=== PATIENT | female | born 1975 | race Caucasian/White ===

== ENCOUNTER 2016-05-11 12:34 | Emergency (ER) | payer OTHER ==
--- NOTE | 2016-05-11 15:39 | UC ---
Throat Pain/Nasal Zak HPI - HPI Summary HPI Summary: sore throat fever, body aches - History of Current Complaint Chief Complaint: UCGeneralIllness Stated Complaint: ST,ACHY, Time Seen by Provider: 05/11/16 15:31 Hx Obtained From: Patient Hx Last Menstrual Period: Mirena, not in years ?: No Onset/Duration: Sudden Onset, Lasting Days - 2, Still Present Severity: Moderate Pain Intensity: 6 Pain Scale Used: 0-10 Numeric Cough: None Associated Signs & Symptoms: Positive: Fever - Allergies/Home Medications Allergies/Adverse Reactions: Allergies Allergy/AdvReac Type Severity Reaction Status Date / Time Amoxicillin Allergy Hives Verified 05/11/16 15:32 Erythromycin Allergy Vomiting Verified 05/11/16 15:32 Seasonal Allergy Congestion Uncoded 05/11/16 15:31 Sulfa Drugs Allergy Hives Uncoded 05/11/16 15:32 Home Medications: Home Medications Albuterol HFA INHALER* [Ventolin HFA Inhaler*] 2 puff INH Q4HR PRN 05/11/16 [ History Confirmed 05/11/16] Levonorgestrel (IUD) (NF) [Mirena (NF)] 05/11/16 [History] Lisinopril TAB* [Prinivil TAB 10 MG*] 1 tab PO DAILY 05/11/16 [History Confirmed 05/11/16] Melatonin 1 tab PO BEDTIME 05/11/16 [History Confirmed 05/11/16] PMH/Surg Hx/FS Hx/Imm Hx Previously Healthy: No Endocrine History Of: Reports: Thyroid Disease - had swollen thryroid while Denies: Diabetes Cardiovascular History Of: Reports: Hypertension Denies: Cardiac Disorders Respiratory History Of: Reports: Asthma - resolved childhood asthma per pt Denies: COPD GI/ History Of: Denies: Ulcer - Surgical History Surgical History: None - Family History Family History: no cardiovascular issues in family lineage - Social History Occupation: Employed Full-time Lives: With Family Alcohol Use: Daily Alcohol Amount: couple of beers or couple glasses of wine Substance Use Type: None Smoking Status (MU): Heavy Every Day Tobacco Smoker Type: Cigarettes Amount Used/How Often: 1/2-1 ppd Length of Time of Smoking/Using Tobacco: 23 years Have You Smoked in the Last Year: Yes Household Exposure Type: Cigarettes Cessation Counseling: Counseled 3+Min - 10 Min - Immunization History Most Recent Influenza Vaccination: 01/30 Review of Systems Constitutional: Chills, Fatigue Skin: Negative Eyes: Negative ENT: Sore Throat Respiratory: Negative Cardiovascular: Negative Gastrointestinal: Negative Genitourinary: Negative Motor: Negative Neurovascular: Negative Musculoskeletal: Negative Neurological: Negative Psychological: Negative All Other Systems Reviewed And Are Negative: Yes Physical Exam Triage Information Reviewed: Yes Appearance: Well-Appearing, No Pain Distress, Well-Nourished Vital Signs: Initial Vital Signs Temp 98.5 F 05/11/16 15:25 Eye Exam: Normal Eyes: Positive: Conjunctiva Clear ENT Exam: Other ENT: Positive: Hearing grossly normal, Pharyngeal erythema, Nasal congestion, Nasal drainage, TMs normal. Negative: Tonsillar swelling, Tonsillar exudate, Trismus, Muffled/hoarse voice Dental Exam: Normal Neck exam: Normal Neck: Positive: Supple, Nontender, No Lymphadenopathy Respiratory Exam: Normal Respiratory: Positive: Chest non-tender, Lungs clear, Normal breath sounds, No respiratory distress, No accessory muscle use Cardiovascular Exam: Normal Cardiovascular: Positive: RRR, No Murmur, Pulses Normal, Brisk Capillary Refill Musculoskeletal Exam: Normal Musculoskeletal: Positive: Strength Intact, ROM Intact, No Edema Neurological Exam: Normal Neurological: Positive: Alert, Muscle Tone Normal Psychological Exam: Normal Skin Exam: Normal Diagnostics - Laboratory Diagnostic Studies Completed/Ordered: RST (+) Throat Pain/Nasal Course/Dx - Course Assessment/Plan: Zithromax, increase fluids, rest, follow with pcp, nicotine smoking cesation information - Differential Dx/Diagnosis Differential Diagnosis/HQI/PQRI: Influenza, Otitis Media, Peritonsillar Abscess , Pharyngitis, Sinusitis, URI Provider Diagnoses: Strep pharyngitis Discharge - Discharge Plan Condition: Stable Disposition: HOME Prescriptions: Azithromycin TAB* [Zithromax TAB (Z-KHUSHI) 250 mg #6 tabs] 2 tab PO .TODAY, THEN 1 DAILY #1 khushi Patient Education Materials: How to Stop Smoking (ED), Strep Throat (ED), Cigarette Smoking and Your Health (GEN) Forms: *Work Release Referrals: [facility] [Outside] - If Needed
[2016-05-11 15:41] VITALS: BP 142/95
== END 2016-05-11 16:10 | disposition home or self-care (01) ==
LOC: UCEAST 12:34
DX: J02.0 Streptococcal pharyngitis (principal); I10 Essential (primary) hypertension; F17.210 Nicotine dependence, cigarettes, uncomplicated; Z88.0 Allergy status to penicillin; Z88.2 Allergy status to sulfonamides
CPT/HCPCS: 87502; 87651; 99212; G0463

== ENCOUNTER 2016-06-14 00:39 | Inpatient (IN) | payer OTHER ==
[2016-06-14] MEDS ORDERED: Ondansetron INJ* 2 MG/ML VIAL IV ONE ×2 (00:43→01:06)
[2016-06-14] MEDS ORDERED: NS 0.9% 1000 ML* 1,000 ML IV ONE ×2 (00:43→00:54)
[2016-06-14] MEDS ORDERED: Aspirin TAB* 325 MG PO ONE (00:55)
[2016-06-14] MEDS ORDERED: Heparin for STEMI(*) 5,000 UNITS/ML 1 ML VIAL IV ONE ×2 (01:00→01:01)
[2016-06-14] MEDS ORDERED: Metoprolol Tartrate TAB* 25 MG PO ONE (01:00)
[2016-06-14] MEDS ORDERED: Aspirin Low Dose CHEW TAB* 81 MG ONE (01:01)
[2016-06-14] MEDS ORDERED: Morphine INJ* 4 MG/ML 1 ML SYRINGE IV ONE (01:06)
[2016-06-14 01:16] LABS: Hematocrit 42 % (35-47); Hemoglobin 14.3 g/dl (12.0-16.0); Mean Corpuscular HGB Conc 34 g/dl (31-36); Mean Corpuscular Hemoglobin 32 pg (27-31); Mean Corpuscular Volume 93 fL (80-97); Mean Platelet Volume 8 um3 (7.4-10.4); Red Blood Count 4.51 10^6/ul (4.0-5.4); Red Cell Distribution Width 13 % (10.5-15); White Blood Count 15.9 10^3/ul (3.5-10.8)
[2016-06-14] MEDS ORDERED: fentaNYL* 50 MCG/ML 2 ML VIAL (100 MCG VIAL) ONE ×2 (01:20→02:53)
[2016-06-14] MEDS ORDERED: Iohexol 350 (CONTRAST) 200 ML MDV IV ONE ×2 (01:20→02:28)
[2016-06-14] MEDS ORDERED: Heparin(*) 1000 UNIT/ML 10 ML VIAL CATH LAB IV ONE (01:20)
[2016-06-14] MEDS ORDERED: Midazolam* 1 MG/ML 5 ML VIAL (5 MG) ONE (01:20)
[2016-06-14] MEDS ORDERED: VERAPAMIL 2.5 MG/ML 4 ML VIAL ONE (01:20)
[2016-06-14] MEDS ORDERED: nitroGLYCERIN DRIP* 250 ML ONE (01:21)
[2016-06-14] MEDS ORDERED: Heparin 2 UNITS/ML IVPREMIX* 2,000 ML IV ONE (01:21)
[2016-06-14] MEDS ORDERED: Lidocaine 1% INJ* 10 MG/ML 30 ML SDV ONE (01:21)
[2016-06-14 01:30] LABS: Urine Bacteria 1+ (Absent); Urine Bilirubin Negative (Negative); Urine Glucose 1+(50 mg/dL) (Negative); Urine Nitrite Negative (Negative)
[2016-06-14 01:31] LABS: Albumin 4.4 g/dL (3.2-5.2); BUN/Creatinine Ratio 12.5 (8-20); Calcium 8.9 mg/dL (8.6-10.3); EGFR African American 91.5 (>60); EGFR Non-African American 71.2 (>60); Globulin 3.1 g/dL (2-4); Potassium 2.9 mmol/L (3.5-5.0); Total Bilirubin 0.4 mg/dL (0.2-1.0); Total Protein 7.5 g/dL (6.4-8.9)
[2016-06-14 01:35] LABS: Troponin I 0.03 ng/mL (<0.04)
[2016-06-14] MEDS ORDERED: KCL 10 MEQ/50 ML IVPREMIX* 10 MEQ/50 ML BAG ONE ×2 (01:46→05:58)
[2016-06-14] MEDS ORDERED: Nitroglycerin TAB 0.4 MG* 0.4 MG TAB SL PRN (03:28)
[2016-06-14] MEDS ORDERED: oxyCODONE/Acetamin 5/325 MG* TAB PO PRN (03:30)
[2016-06-14] MEDS ORDERED: Ondansetron INJ* 2 MG/ML VIAL IV PRN (03:30)
[2016-06-14] MEDS ORDERED: Clopidogrel TAB* 300 MG PO ONE (03:30)
[2016-06-14] MEDS ORDERED: NS 0.9% 1000 ML* 1,000 ML IV SCH (03:30)
[2016-06-14 04:30] LABS: Cholesterol 174 mg/dL; HDL Cholesterol 35.4 mg/dL; LDL Cholesterol 103 mg/dL; Triglycerides 179 mg/dL
[2016-06-14 04:42] LABS: Troponin I 0.55 ng/mL (<0.04)
[2016-06-14] MEDS: Metoprolol Tartrate TAB* 25 MG PO SCH ×3 (05:32→20:45)
[2016-06-14] MEDS ORDERED: KCL premix 10MEQ/50 ML x 1 TIME IV ONE (06:15)
--- NOTE | 2016-06-14 07:40 | RAD ---
INDICATION: STEMI. COMPARISON: There are no prior studies available for comparison. TECHNIQUE: A portable view of the chest was obtained. FINDINGS: Cardiac and mediastinal contours appear to be within normal limits. The lungs are clear. No pleural effusion is seen. IMPRESSION: NO EVIDENCE FOR ACUTE DISEASE.
[2016-06-14] MEDS ORDERED: PROCHLORPERAZINE INJ 5 MG/ML 2 ML VIAL ONE (08:22)
[2016-06-14 10:16] LABS: Potassium 4.6 mmol/L (3.5-5.0)
[2016-06-14 10:23] LABS: Troponin I 6.51 ng/mL (<0.04)
[2016-06-14] MEDS: Aspirin Low Dose CHEW TAB* 81 MG PO SCH (11:53)
[2016-06-14] MEDS: PROCHLORPERAZINE INJ 5 MG/ML 2 ML VIAL IV PRN ×2 (13:41→20:35)
[2016-06-14] MEDS: Clopidogrel TAB* 75 MG PO SCH (15:12)
[2016-06-14] MEDS: Atorvastatin* 80 MG TAB PO SCH (15:12)
--- NOTE | 2016-06-14 23:08 | HP ---
CC: Doni Phelps MD HISTORY AND PHYSICAL: DATE OF ADMISSION: 06/14/16 PRIMARY CARE PHYSICIAN: None. HISTORY OF PRESENT ILLNESS: A 41-year-old woman presenting to the ER with inferior wall ST elevatio n infarct. She has no previous cardiac history, for the past number of weeks, has been exercising strenuously i n the gym trying to lose weight. Yesterday, she presented to the ER with some GI symptoms, was init ially thought to have a viral syndrome. An EKG was obtained when she causally mentioned that she had been experiencing chest discomfort. The EKG at 0050 hours showed an acute inferior ST elevation in farct with ST elevation in 2, 3, and AVF with reciprocal ST-T wave changes at 1, AVL. She was spenser cardiac with borderline ectopic atrial rhythm. STEMI was called, she was brought to the labelling machine operator. She has not had any previous cardiac symptoms. She does have a history of hypertension and hyperlip idemia, but did not pursue medical followup because she had no insurance coverage, and did not have the financial means to pay for medications. She recently has acquired insurance. She tells me she is prepared to take whatever medications are required, even if she has stenting done. PAST MEDICAL HISTORY: Obesity, hyperlipidemia, and hypertension. FAMILY HISTORY: Positive for heart disease in her family, but not in first-degree relatives. ALLERGIES: AMOXICILLIN, ERYTHROMYCIN, and SULFA DRUGS. SOCIAL HISTORY: She is a smoker. PHYSICAL EXAMINATION When seen in the ER, she was complaining of chest and arm discomfort. Her initial BP 118/69 and hea rt rate in the 50s, sinus bradycardia. Her lungs were clear to percussion and auscultation. JVP wa s normal as were the carotids. She had no bruits. HEENT: Unremarkable without xanthelasma, sclera l injection, or jaundice. EOMs normal. Cranial nerves grossly intact. Cardiac Exam: Chest wall no ntender, normal heart sounds, no gallop, no murmur, and no rub. RV not palpable. Abdomen: Soft, no ntender. Normal bowel sounds. Liver and aorta not palpable. No bruit. Femoral pulses 2+. Extremi ties: Radial pulses were 2+, pedal pulses 2+. She had no cyanosis, clubbing, or edema. Skin: War m and perfused. Psych: She is oriented and appropriate. DIAGNOSTIC STUDIES/LAB DATA: EKG is above. Chest x-ray by report no acute changes. Labs: White count elevated at 15,900; hemoglobin 14.3; hematocrit 42; and platelet count 259,000. Coag is normal, first potassium low at 2.9, sodium 133, and random blood sugar 168. A1c pending. F irst lactic acid was elevated at 5.4 with a repeat of 2.6. First troponin 0.03. BNP normal at 29. LDL 103 with a direct LDL of 135. IMPRESSION: 1. Acute inferior wall ST elevation infarct: She had a somewhat atypical presentation accounting f or the delay in the STEMI call. She underwent emergent catheterization. 2. Hypertension: Untreated. 3. Hyperlipidemia: Untreated. 4. Tobacco use: We will encourage her not to resume smoking. 5. Obesity: She has been exercising vigorously for several weeks in an effort to lose weight. Int erestingly, she has not had symptoms prior to presentation. 6. History of medication noncompliance: She is quite clear that she did not get her medications as prescribed because of cost, nor did she have medical followup. She now has insurance and is committ ed to follow up and taking meds as prescribed. She understands the critical importance of dual antip latelet therapy in case she needs stenting. [id number]/[facility] #: [id number]
[2016-06-15] MEDS: Metoprolol Tartrate TAB* 25 MG PO SCH ×3 (04:30→19:58)
[2016-06-15 06:46] LABS: Troponin I 48.5 ng/mL (<0.04)
[2016-06-15] MEDS: Aspirin Low Dose CHEW TAB* 81 MG PO SCH (07:31)
[2016-06-15] MEDS: Clopidogrel TAB* 75 MG PO SCH (07:31)
[2016-06-15] MEDS: LORazepam TAB(*) 1 MG PO PRN ×2 (10:04→19:56)
[2016-06-15] MEDS: Atorvastatin* 80 MG TAB PO SCH (17:02)
[2016-06-15 17:17] LABS: BUN/Creatinine Ratio 11.8 (8-20); Calcium 8.5 mg/dL (8.6-10.3); EGFR African American 123.2 (>60); EGFR Non-African American 95.8 (>60); Potassium 4.1 mmol/L (3.5-5.0)
[2016-06-16] MEDS: Metoprolol Tartrate TAB* 25 MG PO SCH ×3 (03:50→19:48)
[2016-06-16] MEDS: Aspirin Low Dose CHEW TAB* 81 MG PO SCH (09:34)
[2016-06-16] MEDS: Clopidogrel TAB* 75 MG PO SCH (09:34)
[2016-06-16] MEDS: Lisinopril TAB* 5 MG PO SCH (17:10)
[2016-06-16] MEDS: Atorvastatin* 80 MG TAB PO SCH (17:11)
[2016-06-16] MEDS: LORazepam TAB(*) 1 MG PO PRN (21:04)
[2016-06-16] MEDS: Zolpidem TAB* 5 MG PO PRN (23:23)
[2016-06-17] MEDS: Metoprolol Tartrate TAB* 25 MG PO SCH ×3 (04:13→20:16)
[2016-06-17 05:54] LABS: BUN/Creatinine Ratio 15.9 (8-20); Calcium 8.7 mg/dL (8.6-10.3); EGFR African American 121.2 (>60); EGFR Non-African American 94.2 (>60); Potassium 3.3 mmol/L (3.5-5.0)
[2016-06-17] MEDS: Aspirin Low Dose CHEW TAB* 81 MG PO SCH (08:25)
[2016-06-17] MEDS: Clopidogrel TAB* 75 MG PO SCH (08:26)
[2016-06-17] MEDS: Lisinopril TAB* 5 MG PO SCH (08:27)
--- NOTE | 2016-06-17 10:00 | ECHO ---
Patient: JOSE MANUEL CHENEY [facility] Rec#: [id number] : 1975 Date: 06/17/2016 Age: 41y Height: 165 cm / 65.0 in Weight: 106 kg / 233.6 lbs Sex: F BSA: 2.11 Room#: 433 Admit Date#: 06/14/2016 Type: Inpatient Referring: Doni Phelps MD Reading: Bunny Hankins MD Guest Room Attendant: Leesa Collins [facility] Transthoracic Echocardiogram Indication: ACS BP: 108/65 HR: 62 Rhythm: NSR Findings History: IWSTEMI,SOB,smoker,obesity,HDL,HTN. This is a limited study to evaluate LVEF. Technical Comments: The study quality is good. Completed at 0950. Left Ventricle: There is normal left ventricular systolic function. The estimated ejection fraction is 55-60%. The basal inferior wall segment is hypokinetic (score 2). Overall wallmotion score index is 2.00 Conclusions Limited Echo to evaluated LV function There is normal left ventricular systolic function. The estimated ejection fraction is 55-60%. The basal inferior wall segment is hypokinetic (score 2). Wallmotion BAS Not Seen BA Not Seen BAL Not Seen JONATHON Not Seen BI Hypokinetic BIS Not Seen MAS Not Seen MA Not Seen MAL Not Seen MIL Not Seen CO Not Seen MIS Not Seen Not Seen AA Not Seen AL Not Seen AI Not Seen APEX Not Seen
[2016-06-17] MEDS: LORazepam TAB(*) 1 MG PO PRN ×2 (11:05→22:38)
[2016-06-17] MEDS: Potassium Chlor TAB* 20 MEQ TAB.ER PO SCH ×2 (13:55→20:16)
[2016-06-17] MEDS: Atorvastatin* 80 MG TAB PO SCH (17:26)
[2016-06-17] MEDS: Zolpidem TAB* 5 MG PO PRN (22:38)
[2016-06-18] MEDS: Metoprolol Tartrate TAB* 25 MG PO SCH ×2 (05:54→12:42)
[2016-06-18] MEDS: Lisinopril TAB* 5 MG PO SCH (09:40)
[2016-06-18] MEDS: Aspirin Low Dose CHEW TAB* 81 MG PO SCH (09:41)
[2016-06-18] MEDS: Clopidogrel TAB* 75 MG PO SCH (09:41)
[2016-06-18 14:04] VITALS: BP 109/69
--- NOTE | 2016-06-19 12:28 | DS ---
CC: Doni Phelps MD DISCHARGE SUMMARY: DATE OF ADMISSION: 06/14/16 DATE OF DISCHARGE: 06/18/16 PRIMARY: To be established. DISCHARGE DIAGNOSES: 1. Inferior wall ST-elevation infarct. 2. Nonsustained ventricular tachycardia. 3. Tobacco use. 4. Obesity. 5. Hyperlipidemia. 6. Hypertension. 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 PROCEDURES: Cardiac cath, unsuccessful PCI RCA due to anomalous RCA origin, left coronary cusp with inability to wire and cross the occlusion, echocardiography, and telemetry. CONDITION ON DISCHARGE: Stable. DISCHARGE MEDICATIONS: 1. Aspirin 81 mg daily. 2. Lipitor 80 mg daily. 3. Plavix 75 mg daily. 4. Lisinopril 2.5 mg daily. 5. Lopressor 25 t.i.d. 6. Nitroglycerin 0.4 sublingual p.r.n. ACTIVITY: No strenuous exertion for 1 week. To walk 30 minutes daily. To not lift more than 10 pounds, right hand, 3 days. Wound care, shower only for 3 days. DIET: Low fat, low cholesterol. FOLLOWUP: 1. Dr. Phelps next week, MOB 101 for wound check. 2. Continuous monitoring via cutaneous monitor. 3. Do not smoke. HISTORY: See H and P. DIAGNOSTIC STUDIES/LAB DATA: On June 17, potassium was again low at 3.3 and was repleted, on June 18, it was 3.9. Creatinine remained stable post PCI at 0.69. Her troponin peaked at 54.7. LDL was 103, on no statin. EKG, June 17, inferior Q waves with less than 1-mm inferior ST-elevation and terminal T-wave inversion with T-wave inversion in V6. HOSPITAL COURSE: She presented with acute inferior wall ST-elevation infarct, underwent emergent catheterization. Her right coronary artery ostium was finally located high in the left coronary cusp or above the cusp adjacent to the left coronary artery, I was able to engage it with an Amplatz left II catheter, but it was impossible to wire it because of inadequate guide support. The system prolapsed each time the stenosis was probed. The procedure was terminated after she had resolution of chest pain; it had been at least 5 hours since symptom onset, her ST elevation had improved, significant amount of fluoro time and contrast had been used. She was then treated medically for her infarct. Her LVEF at cath was normal at 55% with inferobasilar akinesis. LV function was remeasured with echo, 06/17/16, was again normal with EF of 55% to 60% with basal inferior wall hypokinesis. Post cath, her chest pain did not recur. She had no issues with right radial artery access, but she continued to have bursts of nonsustained VT, although over time, they became less frequent and slower. She did not qualify for LifeVest, yet I felt she was at some increased arrhythmic risk. We arranged for her to go home with a continuous cutaneous monitor, she will be followed up next week. Her right coronary artery is likely running between her aorta and pulmonary artery, that may be the cause for her infarct as she has been exercising quite rigorously lately and felt poorly after her last strenuous exercise session before her presentation. It was not possible to revascularize her right coronary, so far she has not had any spontaneous symptoms of ischemia. She will likely have an outpatient MRA during convalescence to document the course of her right coronary artery. She has been tolerating beta blockade with asymptomatic sinus bradycardia in the high 40s to 50s on her current dose of beta bautista. On the day of discharge, her vitals are stable, she is asymptomatic and ambulatory, has sinus bradycardia with stable blood pressure, normal exam. All questions were answered. [id number]/[facility] [place] #: [id number] TRAV
--- NOTE | 2016-06-21 00:40 | CATH ---
CC: Dr. Doni Phelps ANGIOPLASTY REPORT: DATE OF PROCEDURE: 06/14/16 PRIMARY: None. PROCEDURES: Right radial artery access, bilateral selective coronary cineangiography, left heart ca theterization, left ventriculography, attempted angioplasty RCA unsuccessful due to inability to electron microscopist ss with the wire because of anomalous RCA origin. HISTORY: A 41-year-old woman with acute inferior ST elevation infarct with vague symptom onset shor tly after strenuous physical workout followed by subsequent ST elevation infarct. She was brought t o the laboratory director. PROCEDURE ACCESS: Right radial artery sheath 6-F Slender. MEDICATIONS: 1. Subcu lidocaine. 2. IV Versed. 3. IV fentanyl. 4. Heparin 4000 units in the ER. 5. Nitroglycerin 300 mcg. 6. Verapamil 3 mg IA, radial cocktail. 7. Potassium 10 mEq IV. 8. Heparin 3000 units IV, 3000 units IV, 2000 units IV, 2000 units IV. DIAGNOSTIC CATHETER: 5-FL 3.5 to the left coronary. The RCA origin was very difficult to identify. A number of catheters were utilized including an Ikari 1, 6- FR4, KR3H, AR1, LCD, AL2. The AL2 mauro d the best engagement which was very tenuous and only approachable from below, but too unstable for PCI. As soon as a wire was advanced into the RCA and approached the occlusion point, the guide dise ngaged repeatedly. PCI was therefore unsuccessful. By the time of the end of the procedure, it had been at least 5 hours since symptom onset. Her chest pain had resolved. Her ST elevation had impr saw. Fluoro time was approaching 30 minutes and contrast used was 200 mL. HEMODYNAMICS: Initial BP 118/77, LV 115/17 - 24. No aortic valve gradient on pullback. ANGIOGRAPHY: Several injections in the right coronary cusp did not show the RCA origin in the usual location. There was very faint filling from high up in the left coronary cusp or far over in the r ight coronary cusp close to the left main. Left main: The left main is large, has no stenosis. LAD: The LAD is large, extends past the apex and supplies the inferoapical segment. The LAD is margarita ewhat tortuous, has no stenosis. It supplies the moderate proximal diagonal branch. Circumflex: The circumflex is large, with a large ramus branch and a large marginal. The circumfle x ends with a small posterolateral. The circumflex has no stenosis. The RCA was finally identified as originating high in the left cusp adjacent to the left main. The RCA is occluded a few centimeters from the origin. LV gram: Preserved LVEF of 55% with inferobasilar akinesis. CONCLUSION: 1. 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 2. Unsuccessful angioplasty due to inability to cross the lesion with a wire due to guiding cathete r instability. 3. Normal LV systolic function with regional wall motion abnormality. 4. Normal left-sided hemodynamics aside from elevated LVEDP. 5. Successful right radial artery access. [id number]/[facility] #: [id number]
== END 2016-06-18 14:30 | disposition home or self-care (01) | DRG 190 ==
LOC: ED 00:39 → CHICATH 01:40 → ICU 03:38 → MEDTELE 06-15 13:49
PROVIDERS: ADMIT Internal Medicine Cardiovascular Disease; ATTEND Internal Medicine Cardiovascular Disease
PROC: B2111ZZ Fluoroscopy of Multiple Coronary Arteries using Low Osmolar Contrast (ICD-10-PCS; 2016-06-14)
PROC: 4A023N7 Measurement of Cardiac Sampling and Pressure, Left Heart, Percutaneous Approach (ICD-10-PCS; principal; 2016-06-14 01:30)
DX: I21.19 ST elevation (STEMI) myocardial infarction involving other coronary artery of inferior wall (principal); I47.2 Ventricular tachycardia; I10 Essential (primary) hypertension; E78.5 Hyperlipidemia, unspecified; E66.9 Obesity, unspecified; Z82.49 Family history of ischemic heart disease and other diseases of the circulatory system; Z88.0 Allergy status to penicillin; Z88.1 Allergy status to other antibiotic agents; Z88.2 Allergy status to sulfonamides; F17.200 Nicotine dependence, unspecified, uncomplicated; Z91.14 Patient's other noncompliance with medication regimen; I25.10 Atherosclerotic heart disease of native coronary artery without angina pectoris; Z53.09 Procedure and treatment not carried out because of other contraindication; Z79.82 Long term (current) use of aspirin; Z79.02 Long term (current) use of antithrombotics/antiplatelets; Z68.38 Body mass index [BMI] 38.0-38.9, adult
CPT/HCPCS: 36415; 71010; 80048; 80053; 80061; 81003; 81015; 82550; 82553; 83036; 83605; 83721; 83735; 83874; 83880; 84132; 84484; 85025; 85610; 85730; 86850; 86900; 86901; 87040; 87086; 87502; 87641; 93005; 93308; 94760; A9270-GY; C1769; C1887; J0780; J1644; J2001; J2250; J2270; J2405; J3010; J3480

== ENCOUNTER 2017-04-07 12:00 | Emergency (ER) | payer OTHER ==
[2017-04-07 12:11] VITALS: BP 123/73
--- NOTE | 2017-04-07 12:22 | UC ---
Upper Extremity HPI - HPI Summary HPI Summary: Pt presents with right distal forearm pain and swelling. She tells me that she had open heart surgery at [facility] on 03/31. Yesterday she noticed this pain , swelling, and mild redness just above where her peripheral IV was placed. She denies fever, chills, drainage, streaking, bleeding, decreased ROM, numbness, tingling, or pain/pallor distal to site. - History of Current Complaint Chief Complaint: UCWounds Stated Complaint: BUMP ON ARM Time Seen by Provider: 04/07/17 12:22 Hx Obtained From: Patient Hx Last Menstrual Period: IUD Onset/Duration: Gradual Onset Severity Initially: Moderate Severity Currently: Moderate Pain Intensity: 6 Pain Scale Used: 0-10 Numeric Character: Dull, Aching, Throbbing - Allergies/Home Medications Allergies/Adverse Reactions: Allergies Allergy/AdvReac Type Severity Reaction Status Date / Time Amoxicillin Allergy Hives Verified 04/07/17 12:11 Bee Venom Allergy Swelling Verified 04/07/17 12:11 Erythromycin Allergy Vomiting Verified 04/07/17 12:11 Seasonal Allergy Congestion Uncoded 04/07/17 12:11 Sulfa Drugs Allergy Hives Uncoded 04/07/17 12:11 Home Medications: Home Medications Acetaminophen [Eq Pain Reliever] 1 tab PO Q6HR PRN 04/07/17 [History Confirmed 04/07/17] Amiodarone TAB* [Cordarone Tab*] 200 mg PO DAILY 04/07/17 [History Confirmed ] Aspirin Low Dose CHEW TAB* [Aspirin Low Dose TAB*] 324 mg PO DAILY 04/07/17 [ History Confirmed 04/07/17] Furosemide TAB* [Lasix TAB*] 20 mg PO DAILY 04/07/17 [History Confirmed 04/07/17 ] Levonorgestrel (Iud) [Mirena IUD] 1 applic VAGINAL ONCE 04/07/17 [History Confirmed 04/07/17] Metoprolol Tartrate TAB* [Lopressor TAB*] 0.5 tab PO BID 04/07/17 [History Confirmed 04/07/17] Potassium Chlor TAB* [Potassium Chlor TAB 20 MEQ*] 1 tab PO BID 04/07/17 [ History Confirmed 04/07/17] oxyCODONE TAB* [Roxycodone TAB 5 mg*] 1 tab PO Q4HR PRN 04/07/17 [History Confirmed 04/07/17] PMH/Surg Hx/FS Hx/Imm Hx Endocrine History: Dyslipidemia Cardiovascular History: Cardiac Disease, Hypertension Respiratory History: Asthma Psychological History: Depression - Surgical History Surgical History: Yes Surgery Procedure, Year, and Place: CABG-03/31/17 - Family History Known Family History: Positive: Cardiac Disease - Grandparents Family History: no cardiovascular issues in family lineage - Social History Occupation: Employed Full-time Lives: With Family Alcohol Use: Rare Substance Use Type: None Smoking Status (MU): Former Smoker Type: Cigarettes Amount Used/How Often: 1/2-1 ppd Length of Time of Smoking/Using Tobacco: 23 years Have You Smoked in the Last Year: Yes Household Exposure Type: Cigarettes - Immunization History Most Recent Influenza Vaccination: 01/30 Most Recent Pneumonia Vaccination: Never had Review of Systems Constitutional: Negative Skin: Other - Pain and redness distal right forearm Respiratory: Negative Cardiovascular: Negative Gastrointestinal: Negative Neurovascular: Negative Neurological: Negative Psychological: Negative All Other Systems Reviewed And Are Negative: Yes Physical Exam Triage Information Reviewed: Yes Appearance: Well-Appearing, No Pain Distress, Well-Nourished Vital Signs: Initial Vital Signs Temp 96.9 F 04/07/17 12:05 Pulse 64 04/07/17 12:05 Resp 18 04/07/17 12:05 BP 123/73 04/07/17 12:05 Pulse Ox 100 04/07/17 12:05 Vital Signs Reviewed: Yes Neck: Positive: Supple, Nontender, No Lymphadenopathy Respiratory: Positive: Lungs clear, Normal breath sounds, No respiratory distress, No accessory muscle use Cardiovascular: Positive: RRR, Pulses Normal - Right ulnar and radial, Brisk Capillary Refill - Right hand and all fingers Musculoskeletal: Positive: Strength Intact - Right hand and all fingers, ROM Intact - Right hand and all fingers, Other: Neurological: Positive: Alert, Other: - Sensations intact right hand and all fingers Psychological: Positive: Age Appropriate Behavior Skin: Positive: Other - Mild tenderness, edema, and erythema right dorsal forearm radial aspect just proximal to the previous IV site. No streaking, drainage, warmth, induration, or palpable mass. Upper Extremity Course/Dx - Course Course Of Treatment: I suspect this is thrombophlebitis vs superficial phlebitis. She is currently on ASA and plavix. Will treat with Clindamycin given her recent major surgery. Advised to monitor the area for increased redness/pain/swelling and go to ED if develops. - Differential Dx/Diagnosis Provider Diagnoses: Phlebitis of right distal forearm Discharge - Discharge Plan Condition: Stable Disposition: HOME Prescriptions: Clindamycin Cap(NF) [Clindamycin Cap 300 mg Cap(NF)] 300 mg PO TID #21 cap Patient Education Materials: Superficial Thrombophlebitis (ED) Referrals: Mati Sanchez NP [Primary Care Provider] - Additional Instructions: If you develop a fever, shortness of breath, chest pain, new or worsening symptoms - please call your PCP or go to the ED. 1) Monitor the area for increased pain, redness, or swelling - if you develop any of these, please go to the ED.
== END 2017-04-07 12:36 | disposition home or self-care (01) ==
LOC: UCEAST 12:00
DX: I80.8 Phlebitis and thrombophlebitis of other sites (principal); Z79.01 Long term (current) use of anticoagulants; Z79.82 Long term (current) use of aspirin; E78.5 Hyperlipidemia, unspecified; I11.9 Hypertensive heart disease without heart failure; J45.909 Unspecified asthma, uncomplicated; F32.9 Major depressive disorder, single episode, unspecified; Z95.1 Presence of aortocoronary bypass graft; Z88.1 Allergy status to other antibiotic agents; Z88.2 Allergy status to sulfonamides; Z87.891 Personal history of nicotine dependence
CPT/HCPCS: 99212; G0463

== ENCOUNTER 2017-07-15 19:31 | Emergency (ER) | payer OTHER ==
[2017-07-15 19:37] VITALS: BP 149/98
--- NOTE | 2017-07-15 20:09 | UC ---
Dental HPI - HPI Summary HPI Summary: tooth ache x weeks has been on a 7 day coarse of antibiotic (Clinda 300mg 4x day) pain worsening hurts to chew - History of Current Complaint Chief Complaint: UCDentalProblem Stated Complaint: DENTAL COMPLAINT Time Seen by Provider: 07/15/17 19:47 Hx Obtained From: Patient Hx Last Menstrual Period: IUD Onset/Duration: Gradual Onset, Lasting Weeks Severity: Severe Pain Intensity: 8 Pain Scale Used: 0-10 Numeric Aggravating Factor(s): Heat, Cold, Chewing Alleviating Factor(s): Nothing Related History: Previous Dental Care on Same Tooth, Swelling - sligh - Allergies/Home Medications Allergies/Adverse Reactions: Allergies Allergy/AdvReac Type Severity Reaction Status Date / Time amoxicillin Allergy Hives Verified 07/15/17 19:38 bee venom protein (honey bee) Allergy Swelling Verified 07/15/17 19:38 erythromycin base Allergy Vomiting Verified 07/15/17 19:38 Penicillins Allergy Hives Verified 07/15/17 19:38 Seasonal Allergy Congestion Uncoded 04/07/17 12:11 Sulfa Drugs Allergy Hives Uncoded 04/07/17 12:11 PMH/Surg Hx/FS Hx/Imm Hx Previously Healthy: Yes Cardiovascular History: Cardiac Disease - Surgical History Surgical History: Yes Surgery Procedure, Year, and Place: CABG-03/31/17 - Family History Known Family History: Positive: Cardiac Disease - Grandparents Family History: no cardiovascular issues in family lineage - Social History Alcohol Use: Rare Alcohol Amount: couple of beers or couple glasses of wine Substance Use Type: None Smoking Status (MU): Former Smoker Type: Cigarettes Amount Used/How Often: 1/2-1 ppd Length of Time of Smoking/Using Tobacco: 23 years Have You Smoked in the Last Year: Yes Household Exposure Type: Cigarettes - Immunization History Most Recent Influenza Vaccination: 01/30 Most Recent Pneumonia Vaccination: Never had Review of Systems Constitutional: Negative Skin: Negative Eyes: Negative ENT: Dental Pain Respiratory: Negative Cardiovascular: Negative Gastrointestinal: Negative Genitourinary: Negative Motor: Negative Neurovascular: Negative Musculoskeletal: Negative Neurological: Negative Psychological: Negative Is Patient Immunocompromised?: No All Other Systems Reviewed And Are Negative: Yes Physical Exam Triage Information Reviewed: Yes Appearance: Well-Appearing, No Pain Distress, Well-Nourished Vital Signs: Initial Vital Signs Temp 97.5 F 07/15/17 19:34 Pulse 62 07/15/17 19:34 Resp 12 07/15/17 19:34 BP 149/98 07/15/17 19:34 Pulse Ox 100 07/15/17 19:34 Vital Signs Reviewed: Yes Eyes: Positive: Conjunctiva Clear ENT: Positive: Hearing grossly normal, Pharynx normal. Negative: Nasal congestion, Nasal drainage, Tonsillar swelling, Tonsillar exudate, Sinus tenderness, Uvula midline Dental: Positive: Percussion Tenderness @ - 30 Neck: Positive: Supple, Nontender, No Lymphadenopathy Respiratory: Positive: Lungs clear, Normal breath sounds, No respiratory distress, No accessory muscle use Cardiovascular: Positive: RRR, No Murmur Musculoskeletal: Positive: ROM Intact, No Edema Neurological: Positive: Alert Psychological Exam: Normal Skin Exam: Normal Dental Complaint Course/Dx - Differential Dx/Diagnosis Provider Diagnoses: acute dentalgia Discharge - Sign-Out/Discharge Documenting (check all that apply): Discharge/Admit/Transfer - Discharge Plan Condition: Stable Disposition: HOME Prescriptions: DOXYcycline CAP(*) [DOXYcycline 100MG CAP(*)] 100 mg PO BID #14 cap HYDROcodone/ACETAMIN 5-325 MG* [[place] 5-325 TAB*] 1 tab PO Q4H PRN #14 tab MDD 2 PRN Reason: Pain Patient Education Materials: Toothache (ED) Referrals: Kiki Piña NP [Primary Care Provider] - Additional Instructions: to ER for worsening symptoms see dentist [facility] see if they can give you a sooner appt - Billing Disposition and Condition Condition: STABLE Disposition: HOME
== END 2017-07-15 20:10 | disposition home or self-care (01) ==
LOC: UCEAST 19:31
DX: K08.89 Other specified disorders of teeth and supporting structures (principal); I51.9 Heart disease, unspecified; Z95.1 Presence of aortocoronary bypass graft; Z88.0 Allergy status to penicillin; Z88.2 Allergy status to sulfonamides; Z88.1 Allergy status to other antibiotic agents; Z91.030 Bee allergy status; Z87.891 Personal history of nicotine dependence
CPT/HCPCS: 99212; G0463

== ENCOUNTER 2018-04-20 12:22 | Emergency (ER) | payer OTHER ==
--- NOTE | 2018-04-20 13:13 | UC ---
Lower Extremity/Ankle HPI - HPI Summary HPI Summary: The patient is a 42-year-old female who injured her right great toe and first metatarsal today at work when she hyperextended her toe. This occurred during a fire drill. She has pain with weightbearing. He declines any analgesics. - History of Current Complaint Stated Complaint: FOOT INJURY Time Seen by Provider: 04/20/18 13:02 Hx Obtained From: Patient Onset/Duration: Sudden Onset Severity Initially: Moderate Severity Currently: Moderate Pain Intensity: 6 Pain Scale Used: 0-10 Numeric Aggravating Factor(s): Standing, Ambulation Alleviating Factor(s): Rest Able to Bear Weight: Yes Related History: Occupational Injury Feet (Multiple View): 1 - tender along here/pain with dorsiflexion - Allergies/Home Medications Allergies/Adverse Reactions: Allergies Allergy/AdvReac Type Severity Reaction Status Date / Time amoxicillin Allergy Hives Verified 04/20/18 13:22 bee venom protein (honey bee) Allergy Swelling Verified 04/20/18 13:10 erythromycin base Allergy Vomiting Verified 04/20/18 13:22 Penicillins Allergy Hives Verified 04/20/18 13:22 Seasonal Allergy Congestion Uncoded 04/20/18 13:10 Sulfa Drugs Allergy Hives Uncoded 04/20/18 13:22 Home Medications: Home Medications Cyclobenzaprine TAB* [Flexeril 10 MG TAB*] 10 mg PO SEE INSTRUCTIONS 04/20/18 [ History Confirmed 04/20/18] PMH/Surg Hx/FS Hx/Imm Hx Endocrine History: Dyslipidemia Cardiovascular History: Cardiac Disease, Hypertension, Myocardial Infarction - Family History Known Family History: Positive: Hypertension Review of Systems All Other Systems Reviewed And Are Negative: Yes Constitutional: Positive: Negative Skin: Positive: Negative Eyes: Positive: Negative ENT: Positive: Negative Respiratory: Positive: Negative Cardiovascular: Positive: Negative Gastrointestinal: Positive: Negative Genitourinary: Positive: Negative Motor: Positive: Negative Neurovascular: Positive: Negative Musculoskeletal: Positive: Arthralgia Neurological: Positive: Negative Psychological: Positive: Negative Physical Exam Triage Information Reviewed: Yes Appearance: Well-Appearing, No Pain Distress, Well-Nourished Eyes: Positive: Conjunctiva Clear ENT: Positive: Hearing grossly normal. Negative: Nasal congestion, Nasal drainage, Trismus, Muffled voice, Hoarse voice Neck: Positive: Supple, Nontender Respiratory: Positive: Lungs clear, Normal breath sounds, No respiratory distress Cardiovascular: Positive: RRR, No Murmur Musculoskeletal: Positive: Other: - see image Neurological: Positive: Alert Psychological Exam: Normal Skin Exam: Normal Diagnostics - Radiology No standard instances Radiology Interpretation Completed By: Radiologist Summary of Radiographic Findings: Nondisplaced oblique linear fracture at the first proximal phalanx extending to the. cortex at the medial distal metaphysi Lower Extremity Course/Dx - Course Course Of Treatment: refused CAM boot...post op shoe ordered - Differential Dx/Diagnosis Provider Diagnosis: Fracture of proximal phalanx of right great toe Discharge - Sign-Out/Discharge Documenting (check all that apply): Patient Departure All imaging exams completed and their final reports reviewed: Yes - Discharge Plan Condition: Stable Disposition: HOME Patient Education Materials: Crutch Instructions (ED), Toe Fracture (ED) Referrals: Filiberto Marcelo MD [Medical Doctor] - As Soon As Possible Additional Instructions: rest elevate ice use crutches until able to wt bear comfortably - Billing Disposition and Condition Condition: STABLE Disposition: Home
[2018-04-20 13:21] VITALS: BP 152/99
== END 2018-04-20 13:45 | disposition home or self-care (01) ==
LOC: MERGE 12:22 → UCEAST 12:22
DX: S92.411A Displaced fracture of proximal phalanx of right great toe, initial encounter for closed fracture (principal); I10 Essential (primary) hypertension; I25.2 Old myocardial infarction; Z88.1 Allergy status to other antibiotic agents; Z91.030 Bee allergy status; Z88.0 Allergy status to penicillin; Z88.2 Allergy status to sulfonamides; Z91.09 Other allergy status, other than to drugs and biological substances; X50.9XXA Other and unspecified overexertion or strenuous movements or postures, initial encounter; Y92.9 Unspecified place or not applicable; Y99.0 Civilian activity done for income or pay
CPT/HCPCS: 99203; G0463